=== PATIENT | male | born 1985 | race Caucasian/White ===

== ENCOUNTER → 2018-11-08 13:28 | Outpatient (CLI) | payer OTHER, MEDICAID, SELFPAY ==
[2018-11-14 08:06] LABS: Hepatitis B Surf AB Imm QUANT < 5 mIU/mL (> 9)
== END ==
PROVIDERS: Visit Provider Physician Assistant
DX: Z01.84 Encounter for antibody response examination (principal)
CPT/HCPCS: 36415; 86317; 86787